=== PATIENT | female | born 1960 | race Caucasian/White ===

== ENCOUNTER 2018-01-01 07:35 | Day surgery (SDC) | payer OTHER, BC ==
[~2018-01-01] VITALS: Ht 162.6 cm; Wt 83.8 kg
[~2018-01-01 07:35] MED LIST: Advil200 M1; ESCI10 PO; LANS15EC PO
[2018-01-01] MEDS ORDERED: METO25ER PO (07:54)
== END 2018-01-01 11:21 | disposition home or self-care (01) ==
LOC: ORSCSDS 07:35
PROVIDERS: Orthopaedic Surgery
PROC: 0SBD4ZZ Excision of Left Knee Joint, Percutaneous Endoscopic Approach (ICD-10-PCS; principal; 2018-01-01 09:00)
DX: M23.204 Derangement of unspecified medial meniscus due to old tear or injury, left knee (principal); M23.201 Derangement of unspecified lateral meniscus due to old tear or injury, left knee; M94.262 Chondromalacia, left knee; E78.5 Hyperlipidemia, unspecified; I10 Essential (primary) hypertension; M06.9 Rheumatoid arthritis, unspecified; Z79.899 Other long term (current) drug therapy
CPT/HCPCS: J0171; J0690; J2250; J2765; J2795; J3010; J7120

== ENCOUNTER → 2020-02-24 | Outpatient (CLI) | payer OTHER, BC ==
[~2020-02-24] MED LIST changes: +METO25ER PO
== END | disposition home or self-care (01) ==
LOC: LAB SHORT 17:12 → LAB EV 17:12
DX: R05 Cough (principal); Z20.828 Contact with and (suspected) exposure to other viral communicable diseases
CPT/HCPCS: U0003

== ENCOUNTER → 2020-09-02 | Outpatient (CLI) | payer OTHER, BC ==
[~2020-09-02] MED LIST changes: +CALCIUM 600 +1 EA11; +Vitamin C100 M1 PO
[2020-09-02 13:02] LABS: BASOPHILS ABSOLUTE AUTO 0.08 K/mm3 (0.00-0.23); BASOPHILS PERCENT AUTO 1 % (0-2); EOSINOPHILS PERCENT AUTO 1 % (0-6); Hematocrit 40.2 % (33.0-51.0); Hemoglobin 13.3 g/dL (11.5-16.0); IMMATURE GRAN ABSOLUTE AUTO 0.11 K/mm3 (0.00-0.10); IMMATURE GRAN PERCENT AUTO 1 % (0-1); LYMPHOCYTES ABSOLUTE AUTO 3.72 K/mm3 (0.84-5.20); LYMPHOCYTES PERCENT AUTO 30 % (21-46); MONOCYTES ABSOLUTE AUTO 1.32 K/mm3 (0.16-1.47); MONOCYTES PERCENT AUTO 11 % (4-13); Mean Corpuscular HGB 28.1 pg (26.0-34.0); Mean Corpuscular HGB Conc 33.1 g/dL (31.5-36.5); Mean Corpuscular Volume 85 fL (80-100); Mean Platelet Volume 10.6 fL (9.1-12.4); NEUTROPHILS ABSOLUTE AUTO 7.05 K/mm3 (1.96-9.15); NEUTROPHILS PERCENT AUTO 57 % (41-73); Platelet Count 284 K/mm3 (150-400); RDW Coefficient Variation 14.6 % (11.7-14.2); RDW Standard Deviation 45.1 fL (35.1-46.3); Red Blood Cell Count 4.74 M/mm3 (3.80-5.20); White Blood Cell Count 12.38 K/mm3 (4.00-11.30)
[2020-09-02 13:13] LABS: Alanine Aminotransfer (ALT/SGP 36 U/L (12-78); Albumin, Blood 3.9 g/dL (3.4-5.0); Albumin/Globulin Ratio 0.9 (0.8-1.8); Alk Phos 89 U/L (40-126); Anion Gap 7 mmol/L (6-16); Aspartate Aminotrans (AST/SGOT 21 U/L (12-37); Bilirubin, Total 0.4 mg/dL (0.1-1.0); Blood Urea Nitrogen 11 mg/dL (8-24); Bun/Creatinine Ratio 13.4 (12.0-20.0); CO2, Blood 30 mmol/L (21-32); Chloride, Blood 98 mmol/L (98-108); Creatinine, Blood 0.82 mg/dL (0.40-1.00); Globulin, Blood 4.3 g/dL (2.2-4.0); Glomerular Filtration Rate >60 (60-); Glucose, Blood 102 mg/dL (70-99); Potassium, Blood 4.5 mmol/L (3.5-5.5); Sodium, Blood 135 mmol/L (136-145); Total Protein, Blood 8.2 g/dL (6.4-8.2)
[2020-09-02 13:14] LABS: Troponin I <0.017 ng/mL (0.000-0.040)
== END | disposition home or self-care (01) ==
LOC: LAB SHORT 12:54 → LAB EV 12:54
PROVIDERS: Physician Assistant
DX: R55 Syncope and collapse (principal); R53.83 Other fatigue
CPT/HCPCS: 80053; 84443; 84484; 85025; 85379

== ENCOUNTER 2020-09-09 01:17 | Emergency (ER) | payer OTHER, BC ==
[~2020-09-09] VITALS: Ht 162.6 cm; Wt 77.1 kg
[~2020-09-09 01:17] MED LIST changes: -CALCIUM 600 +1 EA11; -Vitamin C100 M1 PO
[2020-09-09] MEDS ORDERED: METO25ER PO (01:36)
[2020-09-09] MEDS ORDERED: Vitamin C100 M1 PO (01:36)
[2020-09-09] MEDS ORDERED: CALCIUM 600 +1 EA11 (01:36)
[2020-09-09 02:00] LABS: BASOPHILS ABSOLUTE AUTO 0.09 K/mm3 (0.00-0.23); BASOPHILS PERCENT AUTO 1 % (0-2); EOSINOPHILS ABSOLUTE AUTO 0.25 K/mm3 (0.00-0.68); EOSINOPHILS PERCENT AUTO 2 % (0-6); Hemoglobin 12.8 g/dL (11.5-16.0); IMMATURE GRAN ABSOLUTE AUTO 0.13 K/mm3 (0.00-0.10); IMMATURE GRAN PERCENT AUTO 1 % (0-1); LYMPHOCYTES PERCENT AUTO 33 % (21-46); MONOCYTES ABSOLUTE AUTO 1.17 K/mm3 (0.16-1.47); MONOCYTES PERCENT AUTO 9 % (4-13); Mean Corpuscular HGB 27.9 pg (26.0-34.0); Mean Corpuscular HGB Conc 32.8 g/dL (31.5-36.5); Mean Corpuscular Volume 85 fL (80-100); Mean Platelet Volume 10.2 fL (9.1-12.4); NEUTROPHILS ABSOLUTE AUTO 7.39 K/mm3 (1.96-9.15); NEUTROPHILS PERCENT AUTO 55 % (41-73); Platelet Count 282 K/mm3 (150-400); RDW Coefficient Variation 14.4 % (11.7-14.2); RDW Standard Deviation 44.3 fL (35.1-46.3); Red Blood Cell Count 4.58 M/mm3 (3.80-5.20); White Blood Cell Count 13.53 K/mm3 (4.00-11.30)
[2020-09-09 02:14] LABS: Anion Gap 7 mmol/L (6-16); Blood Urea Nitrogen 13 mg/dL (8-24); Bun/Creatinine Ratio 17.8 (12.0-20.0); CO2, Blood 27 mmol/L (21-32); Calcium, Blood 9.2 mg/dL (8.5-10.1); Chloride, Blood 107 mmol/L (98-108); Creatinine, Blood 0.73 mg/dL (0.40-1.00); Glomerular Filtration Rate >60 (60-); Glucose, Blood 105 mg/dL (70-99); Magnesium, Blood 2.3 mg/dL (1.6-2.4); Potassium, Blood 4.1 mmol/L (3.5-5.5); Sodium, Blood 141 mmol/L (136-145); Troponin I <0.015 ng/mL (0.000-0.040)
== END 2020-09-09 03:30 | disposition home or self-care (01) ==
LOC: ER 01:17
PROVIDERS: Emergency Medicine
DX: R55 Syncope and collapse (principal); R07.89 Other chest pain; R00.2 Palpitations; I10 Essential (primary) hypertension; Z79.899 Other long term (current) drug therapy
CPT/HCPCS: 71045; 80048; 83735; 83880; 84484; 85025; 93005; 93010; 99284-25

== ENCOUNTER 2021-10-22 18:03 | Emergency (ER) | payer OTHER, BC ==
[~2021-10-22] VITALS: Ht 162.6 cm; Wt 81.7 kg
[~2021-10-22 18:03] MED LIST changes: +CALCIUM 600 +1 EA11; +Vitamin C100 M1 PO
[2021-10-22 19:24] LABS: BASOPHILS PERCENT AUTO 1 % (0-2); EOSINOPHILS ABSOLUTE AUTO 0.13 K/mm3 (0.00-0.68); EOSINOPHILS PERCENT AUTO 1 % (0-6); Hematocrit 45.5 % (33.0-51.0); Hemoglobin 14.6 g/dL (11.5-16.0); IMMATURE GRAN ABSOLUTE AUTO 0.15 K/mm3 (0.00-0.10); IMMATURE GRAN PERCENT AUTO 1 % (0-1); LYMPHOCYTES ABSOLUTE AUTO 2.59 K/mm3 (0.84-5.20); LYMPHOCYTES PERCENT AUTO 17 % (21-46); MONOCYTES ABSOLUTE AUTO 1.19 K/mm3 (0.16-1.47); MONOCYTES PERCENT AUTO 8 % (4-13); Mean Corpuscular HGB Conc 32.1 g/dL (31.5-36.5); Mean Corpuscular Volume 87 fL (80-100); NEUTROPHILS ABSOLUTE AUTO 11.26 K/mm3 (1.96-9.15); NEUTROPHILS PERCENT AUTO 73 % (41-73); Platelet Count 313 K/mm3 (150-400); RDW Coefficient Variation 13.8 % (11.7-14.2); Red Blood Cell Count 5.21 M/mm3 (3.80-5.20); White Blood Cell Count 15.42 K/mm3 (4.00-11.30)
[2021-10-22 19:48] LABS: Alanine Aminotransfer (ALT/SGP 29 U/L (12-78); Albumin, Blood 4.3 g/dL (3.4-5.0); Alk Phos 117 U/L (50-136); Anion Gap 6 mmol/L (6-16); Aspartate Aminotrans (AST/SGOT 18 U/L (12-37); Bilirubin, Total 0.2 mg/dL (0.1-1.0); Blood Urea Nitrogen 17 mg/dL (8-24); Bun/Creatinine Ratio 23.4 (12.0-20.0); CO2, Blood 27 mmol/L (21-32); Calcium, Blood 9.9 mg/dL (8.5-10.1); Chloride, Blood 102 mmol/L (98-108); Creatinine, Blood 0.73 mg/dL (0.40-1.00); Globulin, Blood 4.1 g/dL (2.2-4.0); Glomerular Filtration Rate >60 (60-); Glucose, Blood 119 mg/dL (70-99); Potassium, Blood 4.5 mmol/L (3.5-5.5); Sodium, Blood 135 mmol/L (136-145); Total Protein, Blood 8.4 g/dL (6.4-8.2)
== END 2021-10-22 20:28 | disposition home or self-care (01) ==
LOC: ER 18:03
PROVIDERS: Physician Assistant
DX: B34.9 Viral infection, unspecified (principal); I10 Essential (primary) hypertension
CPT/HCPCS: 36415; 71045; 80053; 84484; 85025; 93005; 93010; 99284-25